=== PATIENT | male | born 1965 | race African-American/Black ===

== ENCOUNTER 2020-12-18 20:19 | Emergency (ER) | payer MEDICARE ==
[~2020-12-18 20:19] MED LIST: LEVAQUIN750 MG PO; MUCINEX600 MG PO
[2020-12-19 04:20] LABS: BASOPHIL 1.2 % (0-2); EOSINOPHIL 2.3 % (0-5); HCT 39.9 % (42.0-52.0); HGB 13.7 g/dl (13.2-18.0); LYMPHOCYTE 28.3 % (15-48); MCH 31.3 pg (25.0-31.0); MCHC 34.3 g/dL (32.0-36.0); MCV 91.1 fL (78.0-100.0); MONOCYTE 9.4 % (0-12); MPV 9.7 fL (6.0-9.5); NEUTROPHIL 58.4 % (41-80); NRBC 0; PLT 230 K/uL (150-400); RBC 4.38 M/uL (4.70-6.00); RDW 12.6 % (11.5-14.0); WBC 5.6 K/uL (4.0-10.5)
[2020-12-19 04:29] LABS: ALBUMIN 3.6 g/dL (3.4-5.0); BILIRUBIN - TOTAL 0.3 mg/dL (0.2-1.0); BUN/CREAT RATIO (CALC) 11.6 RATIO; CREATININE 0.95 mg/dL (0.67-1.17); GLOBULIN (CALCULATION) 3.3 g/dL; POTASSIUM 4.1 mmol/L (3.5-5.1); TOTAL PROTEIN 6.9 g/dL (6.4-8.2)
[2020-12-19 04:43] LABS: INR 1.06 (0.9-1.2); PROTHROMBIN TIME 13.1 SECONDS (11.4-13.6)
[2020-12-19 07:06] LABS: BILIRUBIN NEGATIVE (NEGATIVE); BLOOD NEGATIVE Ery/uL (NEGATIVE); CLARITY CLEAR (CLEAR); COLOR YELLOW (YELLOW); GLUCOSE (U) NORMAL (NORMAL); LEUKOCYTES NEGATIVE Leu/uL (NEGATIVE); NITRITE NEGATIVE (NEGATIVE); PROTEIN NEGATIVE (NEGATIVE); SPECIFIC GRAVITY 1.015 (1.001-1.030); UROBILINOGEN 0.2 mg/dL (0.2-1.0); pH 6.5 (5.0-9.0)
[2020-12-19 07:08] LABS: AMPHETAMINES NEGATIVE (NEGATIVE); BARBITURATES NEGATIVE (NEGATIVE); ECSTASY (MDMA) NEGATIVE (NEGATIVE); MARIJUANA (THC) NEGATIVE (NEGATIVE); METHADONE NEGATIVE (NEGATIVE); OPIATES NEGATIVE (NEGATIVE); OXYCODONE NEGATIVE (NEGATIVE)
== END 2020-12-19 16:50 | disposition other institution (70) ==
LOC: FER 20:19
PROVIDERS: Emergency Medicine
DX: R51.9 Headache, unspecified (principal); R20.0 Anesthesia of skin; H53.8 Other visual disturbances; F17.200 Nicotine dependence, unspecified, uncomplicated; Z20.822 Contact with and (suspected) exposure to COVID-19
CPT/HCPCS: 36415; 70450; 70544; 70551; 80053; 80305; 81003; 84484; 85025; 85610; 93005; J2060; J7030; U0002